=== PATIENT | male | born 1990 | race Two or more races ===

== ENCOUNTER 2016-10-08 08:50 | Emergency (ER) | payer OTHER ==
[~2016-10-08] VITALS: Ht 175.3 cm; Wt 79.4 kg
[2016-10-08] MEDS ORDERED: NS 1,000 ML IV ONE (09:15)
[2016-10-08] MEDS ORDERED: ONDANSETRON 4MG/2ML VIAL (J2405) IV ONE (09:15)
[2016-10-08] MEDS ORDERED: KETOROLAC 30 MG/ML VIAL (J1885) IV ONE (09:15)
[2016-10-08 09:32] LABS: BASO % 0.6 % (0.0-1.0); EOS # 0.2 K/mm3 (0.0-0.50); EOS % 2.3 % (0.0-3.0); LARGE UNSTAINED CELL # 0.3 K/mm3 (0.0-0.4); LARGE UNSTAINED CELL % 3.1 % (0.0-4.0); LYMPH # 3.6 K/mm3 (1.5-6.5); LYMPH % 42.4 % (24.0-44.0); MEAN CORPUSCULAR HEMOGLOBIN 30.4 pg (27.0-33.0); MEAN CORPUSCULAR HGB CONC 36.4 g/dl (32.0-36.5); MEAN CORPUSCULAR VOLUME 83.5 fl (80.0-96.0); MONO # 0.5 K/mm3 (0.0-0.8); MONO % 6.1 % (0.0-5.0); NEUTROPHILS # 3.8 K/mm3 (1.8-7.7); NEUTROPHILS % 45.5 % (36.0-66.0); PLATELET COUNT, AUTOMATED 205 k/mm3 (150-450); RED CELL DISTRIBUTION WIDTH 12.2 % (11.5-14.5); WHITE BLOOD COUNT 8.4 K/mm3 (4.0-10.0)
[2016-10-08 09:41] LABS: ALBUMIN/GLOBULIN RATIO 1.08 (1.00-1.93); ALKALINE PHOSPHATASE 168 U/L (45-117); ALT/SGPT 35 U/L (12-78); ANION GAP 9 MEQ/L (8-16); AST/SGOT 22 U/L (15-37); BILIRUBIN,DIRECT 0.1 MG/DL (0.0-0.2); BILIRUBIN,TOTAL 0.9 MG/DL (0.2-1.0); BLOOD UREA NITROGEN 15 MG/DL (7-18); CALCIUM LEVEL 9.4 MG/DL (8.5-10.1); CARBON DIOXIDE LEVEL 22 MEQ/L (21-32); CHLORIDE LEVEL 108 MEQ/L (98-107); CREATININE FOR GFR 1.04 MG/DL (0.70-1.30); GLOMERULAR FILTRATION RATE > 60.0 (>60); GLUCOSE, FASTING 146 MG/DL (70-105); POTASSIUM SERUM 3.8 MEQ/L (3.5-5.1); SODIUM LEVEL 139 MEQ/L (136-145); TOTAL PROTEIN 7.7 GM/DL (6.4-8.2)
[2016-10-08] MEDS ORDERED: MORPHINE 4 MG/ML 1ML SYRINGE IV ONE (10:00)
[2016-10-08] MEDS ORDERED: METOCLOPRAMIDE INJ 10MG/2ML VIAL (J2765) IV ONE (10:15)
--- NOTE | 2016-10-08 10:27 | REP ---
CT abdomen and pelvis without IV or oral contrast: Renal stone protocol. History: Right flank and abdominal pain. No comparison studies. 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 The lung bases are clear. There is no evidence of pleural effusion. The liver and the spleen are normal in size and homogeneous in texture. The gallbladder is unremarkable. No adrenal lesion is seen on either side. No pancreatic abnormality is noted. A normal appendix is seen in the right lower abdomen. Small and large intestinal bowel loops are unremarkable. There is mild to moderate right-sided hydronephrosis and hydroureter. This can be traced distally to the ureteral vesicle junction. There is an intramural right distal ureteral calculus at the ureterovesical junction. This calculus measures 4 mm in greatest diameter. No other intrarenal or ureteral calculi are seen. There are multiple dystrophic calcifications in the prostate. There is some periureteral and perinephric edema on the right. No bony destructive lesion is seen. No abdominal wall defect is seen. Impression: Moderate right-sided hydronephrosis and hydroureter due to a distal ureteral 4 mm calculus in the intramural segment of the right distal ureter at the ureterovesical junction. Signed by Yandel Bell MD 10/08/2016 12:58 P
[2016-10-08] MEDS ORDERED: IBUP80TA PO (11:45)
[2016-10-08] MEDS ORDERED: ZOFR4TAB3 PO (11:45)
[2016-10-08] MEDS ORDERED: FLOM5CAP PO (11:45)
[2016-10-08] MEDS ORDERED: NORCOTAB PO (11:45)
[2016-10-08 11:54] VITALS: BP 131/67
== END 2016-10-08 11:59 | disposition home or self-care (01) ==
LOC: M ED 10:16
DX: N20.1 Calculus of ureter (principal)
CPT/HCPCS: 36415; 74176; 80048; 80076; 83690; 85025; 87086; 96361; 96374; 96375; 99284; J1885; J2405; J2765

== ENCOUNTER → 2016-10-19 | Outpatient (REF) | payer OTHER ==
[~2016-10-19] MED LIST: FLOM5CAP PO; IBUP80TA PO; NORCOTAB PO; ZOFR4TAB3 PO
== END ==
LOC: M SMT 13:05
PROVIDERS: ATTEND Nurse Practitioner Family
DX: N20.0 Calculus of kidney (principal)